=== PATIENT | male | born 1975 | race African-American/Black ===

== ENCOUNTER 2024-01-29 15:41 | Emergency (ER) | payer MEDICAID ==
[~2024-01-29] VITALS: Ht 172.7 cm; Wt 70.0 kg
[2024-01-29 15:53] VITALS: BP 123/64; PULSE 75; RESP 15; TEMP 97; O2SAT 98
[2024-01-29] MEDS ORDERED: LIDOCAINE 5% PATCH TOP ONE (16:00)
[2024-01-29] MEDS ORDERED: DIAZEPAM 5 MG TABLET PO ONE (16:00)
== END 2024-01-29 15:51 | disposition left against medical advice (07) ==
LOC: ER 15:41
DX: M54.30 Sciatica, unspecified side (principal)
CPT/HCPCS: 99283